=== PATIENT | female | born 1940 | race Caucasian/White ===

== ENCOUNTER → 2017-04-19 | Outpatient (CLI) | payer MEDICARE ==
[~2017-04-19] MED LIST: CALCIUM CARBON600 MG PO; CELEBREX200 MG PO; CENTRUM COMPLE1 EACH PO; CLARITIN10 MG PO; COLACE100 MG PO; CYMBALTA60 MG PO; DITROPAN5 MG PO; DURAGESIC 50MC50 MCG TOP; LASIX40 MG PO; NIFEREX-150) (150 MG PO; PEPCID20 MG PO; TENORMIN25 MG PO; VITAMIN D-40400 UNIT PO; ZYLOPRIM300 MG PO
== END | disposition disaster alternative care site (69) ==
LOC: GAIR 20:15
DX: J18.9 Pneumonia, unspecified organism (principal); F41.9 Anxiety disorder, unspecified; I50.9 Heart failure, unspecified; G95.9 Disease of spinal cord, unspecified; I51.7 Cardiomegaly; I95.9 Hypotension, unspecified; J90 Pleural effusion, not elsewhere classified; R05 Cough; R06.02 Shortness of breath; R91.8 Other nonspecific abnormal finding of lung field; Z96.659 Presence of unspecified artificial knee joint; Z79.2 Long term (current) use of antibiotics; Z79.899 Other long term (current) drug therapy
CPT/HCPCS: A0422; A0431; A0436